=== PATIENT | male | born 1960 | race Caucasian/White ===

== ENCOUNTER 2019-09-13 03:18 | Observation (INO) | payer OTHER ==
[~2019-09-13] VITALS: Ht 175.3 cm; Wt 65.6 kg
[2019-09-13] MEDS ORDERED: Ventolin/Prove6.7 GM INH (03:36)
[2019-09-13] MEDS ORDERED: PANTOPRAZOLE SO40 M2 PO (03:36)
[2019-09-13] MEDS ORDERED: ATRIPLA PO (03:37)
[2019-09-13 03:53] LABS: BASOPHILS ABSOLUTE AUTO 0.09 K/mm3 (0.00-0.23); BASOPHILS PERCENT AUTO 1 % (0-2); EOSINOPHILS ABSOLUTE AUTO 0.07 K/mm3 (0.00-0.68); EOSINOPHILS PERCENT AUTO 1 % (0-6); Hematocrit 30.4 % (33.0-51.0); Hemoglobin 9.9 g/dL (11.5-16.0); IMMATURE GRAN ABSOLUTE AUTO 0.01 K/mm3 (0.00-0.10); IMMATURE GRAN PERCENT AUTO 0 % (0-1); LYMPHOCYTES ABSOLUTE AUTO 2.04 K/mm3 (0.84-5.20); LYMPHOCYTES PERCENT AUTO 25 % (21-46); MONOCYTES ABSOLUTE AUTO 0.86 K/mm3 (0.16-1.47); MONOCYTES PERCENT AUTO 10 % (4-13); Mean Corpuscular HGB Conc 32.6 g/dL (31.5-36.5); Mean Corpuscular Volume 98 fL (80-100); Mean Platelet Volume 9.2 fL (9.1-12.4); NEUTROPHILS ABSOLUTE AUTO 5.23 K/mm3 (1.96-9.15); NEUTROPHILS PERCENT AUTO 63 % (41-73); Platelet Count 195 K/mm3 (150-400); RDW Coefficient Variation 17.4 % (11.7-14.2); RDW Standard Deviation 62.8 fL (35.1-46.3); Red Blood Cell Count 3.09 M/mm3 (3.80-5.20)
[2019-09-13 04:13] LABS: Alanine Aminotransfer (ALT/SGP 32 U/L (12-78); Albumin, Blood 2.1 g/dL (3.4-5.0); Albumin/Globulin Ratio 0.4 (0.8-1.8); Alk Phos 253 U/L (50-136); Anion Gap 5 mmol/L (6-16); Aspartate Aminotrans (AST/SGOT 76 U/L (12-37); Bilirubin, Total 0.4 mg/dL (0.1-1.0); Blood Urea Nitrogen 2 mg/dL (8-24); CO2, Blood 25 mmol/L (21-32); Calcium, Blood 7.3 mg/dL (8.5-10.1); Chloride, Blood 112 mmol/L (98-108); Creatinine, Blood 0.67 mg/dL (0.40-1.00); Globulin, Blood 4.7 g/dL (2.2-4.0); Glomerular Filtration Rate >60 (60-); Glucose, Blood 90 mg/dL (70-99); Potassium, Blood 3.9 mmol/L (3.5-5.5); Sodium, Blood 142 mmol/L (136-145); Total Protein, Blood 6.8 g/dL (6.4-8.2)
--- NOTE | 2019-09-13 08:30 | NUR ---
INITIAL ASSESSMENT PATIENT ARRIVED TO UNIT AROUND 0810. PATIENT ALERT AND ORIENTED X 4, AFEBRILE. PATIENT IRRITABLE AND WANTS TO BE LEFT ALONE. PATIENT UPSET THAT HE HAD TO BE TRANSFERRED FROM ANOTHER HOSPITAL. PATIENT DENIES PAIN OR DISCOMFORT. CIWA OF 0. PATIENT STATES HE DRINKS DAILY. PATIENT STATES HE USUALLY HAS A FEW BEERS EVERYDAY BUT ALSO SOMETIMES HAS 1/5TH VODKA WITH THEM. PATIENT SATTING 90% AND GREATER ON RA. EXPIRATORY WHEEZES NOTED IN ALL LUNG LOBES. PATIENT SMOKES 1/2 PACK DAILY. PATIENT STATES HE HAS OCCASIONAL DRY COUGH. PATIENT IN SR, HR IN THE 90S. BP STABLE. ABDOMEN SOFT, NONTENDER, NONDISTENDED, WITH HYPOACTIVE BS. PATIENT STATES THAT HIS LAST BM WAS YESTERDAY AND WAS LOOSE AND [place] IN COLOR. PATIENT STATES THAT HE HAS RECENTLY LOST AROUND 25 LBS FROM POOR APPETITE. PATIENT STATES HE FEELS HUNGRY BUT THAT HE DOESN'T FEEL LIKE EATING ANYMORE AFTER A COUPLE OF BITES. PATIENT VOIDING DARK YELLOW URINE INTO BEDSIDE URINAL. SKIN APPEARS WNL. PATIENT ABLE TO MOVE EXTREMITIES AND REPOSITION SELF IN BED. PROTONIX INFUSING AT 10 MLS/ HOUR AND SANDOSTATIN INFUSING AT 25 MLS/ HOUR. BED LOW, CALL LIGHT IN REACH. PATIENT ORIENTED TO UNIT, ROOM AND CALL SYSTEM. WILL CONTINUE TO MONITOR PATIENT FREQUENTLY THROUGHOUT SHIFT.
[2019-09-13 10:17] LABS: Hematocrit 28.8 % (37.0-53.0); Hemoglobin 9.3 g/dL (13.5-17.5); Mean Corpuscular HGB 31.7 pg (26.0-34.0); Mean Corpuscular HGB Conc 32.3 g/dL (31.5-36.5); Mean Corpuscular Volume 98 fL (80-100); Mean Platelet Volume 9.2 fL (9.1-12.4); Platelet Count 186 K/mm3 (150-400); RDW Coefficient Variation 17.2 % (11.7-14.2); RDW Standard Deviation 62.4 fL (35.1-46.3); Red Blood Cell Count 2.93 M/mm3 (4.30-5.90); White Blood Cell Count 6.41 K/mm3 (4.00-11.30)
[2019-09-13 10:34] LABS: Alanine Aminotransfer (ALT/SGP 25 U/L (12-78); Albumin, Blood 2.4 g/dL (3.4-5.0); Albumin/Globulin Ratio 0.6 (0.8-1.8); Alk Phos 232 U/L (50-136); Anion Gap 5 mmol/L (6-16); Aspartate Aminotrans (AST/SGOT 58 U/L (12-37); Bilirubin, Total 0.5 mg/dL (0.1-1.0); Blood Urea Nitrogen 3 mg/dL (8-24); CO2, Blood 24 mmol/L (21-32); Calcium, Blood 7.1 mg/dL (8.5-10.1); Chloride, Blood 112 mmol/L (98-108); Glomerular Filtration Rate >60 (60-); Glucose, Blood 109 mg/dL (70-99); Potassium, Blood 4.2 mmol/L (3.5-5.5); Sodium, Blood 141 mmol/L (136-145); Total Protein, Blood 6.4 g/dL (6.4-8.2)
--- NOTE | 2019-09-13 12:25 | NUR ---
PATIENT RESTING QUIETLY IN BED UPON ENTERING ROOM. PATIENT DENIES PAIN OR DISCOMFORT. PATIENT AFEBRILE. CIWA SCORE OF ZERO. PATIENT REMAINS SATTING 90% AND GREATER ON RA. PATIENT IN SR, HR 80S TO 90S. BP STABLE. PATIENT STATED THAT HE HAD 200 CC CLEAR EMESIS AROUND 15 MINUTES AGO BUT THAT HE NO LONGER FEELS NAUSEOUS. PATIENT STATES THAT HE HAS PROBLEMS WITH NAUSEA AND VOMITING AT HOME LIKE THIS WELL. NO OTHER ACUTE CHANGES TO NOTE ON AT THIS TIME. WILL CONTINUE TO MONITOR.
--- NOTE | 2019-09-13 16:26 | NUR ---
PATIENT RESTING QUIETLY IN BED UPON ENTERING ROOM. PATIENT SBA TO BSC. CIWA OF ZERO. PATIENT HAS TEMP OF 99.3 DEGREES FAHRENHEIT. PATIENT REMAINS SATTING 90% AND GREATER ON RA. PATIENT REMAINS IN SR, HR IN THE 90S. BP STABLE. PATIENT HAS HAD TWO FORMED, DARK BROWN BMS TODAY. PATIENT REFUSES BED BATH. PATIENT DENIES PAIN. NO OTHER ACUTE CHANGES TO NOTE ON AT THIS TIME. WILL CONTINUE TO MONITOR.
[2019-09-13 17:04] LABS: Hematocrit 28.2 % (37.0-53.0); Hemoglobin 9.1 g/dL (13.5-17.5)
--- NOTE | 2019-09-13 18:07 | NUR ---
SHIFT SUMMARY PATIENT REMAINED ALERT AND ORIENTED. PATIENT LESS GRUMPY SECOND HALF OF SHIFT. PATIENT HAD TMAX OF 99.3 DEGREES FAHRENHEIT. CIWAS OF ZERO. PATIENT HAD NO COMPLAINTS OF PAIN DURING SHIFT. PATIENT REMAINED SATTING 90% AND GREATER ON RA. PATIENT REMAINED IN SR, HR 80S TO 90S. BP STABLE. PATIENT WORE SCDS FOR SHORT TIME AND THEN REFUSED. PATIENT HAD 1 CLEAR EMESIS THIS SHIFT AND 2 FORMED, DARK BROWN BMS. PATIENT TOLERATED CLEAR LIQUID DIET WELL. PATIENT VOIDED ADEQUATE AMOUNT OF DARK YELLOW URINE. NO CHANGE TO SKIN. PATIENT REPOSITIONED SELF T/O SHIFT. PROTONIX INFUSING AT 10 MLS/ HOUR AND SANDOSTATIN AT 25 MLS/ HOUR. PATIENT REFUSED BED BATH THIS SHIFT. DR. SMITH SUPPOSED TO SEE PATIENT TONIGHT. BED LOW, CALL LIGHT IN REACH. REPORT HAS BEEN GIVEN TO ASSUMING NURSE, MARGARITA MALDONADO.
--- NOTE | 2019-09-13 19:00 | NUR ---
ASSUMED CARE AT 1900, PT TALKING TO GI DOCTOR, DENIES PAIN, VITAL WNL, REQUESTED FOR CLEAR LIQUD SNACKS. PORTONIX AND SANDOSTATIN INFUSING. WATER ONLY IN THE AM. PROCEDURE SCHEDULE FOR THE AFTERNOON ON THE .
[2019-09-13 22:27] LABS: Hematocrit 27.4 % (37.0-53.0); Hemoglobin 8.8 g/dL (13.5-17.5)
[2019-09-14 04:54] LABS: Hematocrit 29.1 % (37.0-53.0); Hemoglobin 9.5 g/dL (13.5-17.5)
--- NOTE | 2019-09-14 06:47 | NUR ---
PT A&OX4, FOLLOWS COMMANDS, DENIES PAIN, VITALS WNL, ON CLEAR LIQUID AND WILL SWITCHTO WATER ONLY AT 0800. PER DR. SMITH PT WILL HAVE PROCEDURE IN THE AFTERNOON. NO ACUTE EVENTS OVERNIGHT WILL CONTINUE TO MONITOR
--- NOTE | 2019-09-14 08:00 | NUR ---
INITIAL ASSESSMENT PATIENT SLEEPING SOUNDLY UPON ENTERING ROOM. PATIENT WOKE EASILY TO VERBAL STIMULI. PATIENT ALERT AND ORIENTED C 4, AFEBRILE. CIWA OF ZERO. PATIENT SBA. PATIENT DENIES PAIN OR DISCOMFORT AT THIS TIME. PATIENT SATTING 90% AND GREATER ON RA. LUNGS CLEAR THROUGHOUT. PATIENT HAS OCCASIONAL, DRY COUGH. PATIENT IN SR, HR IN THE 80S. BP STABLE. PULSES STRONG. PATIENT REFUSING SCDS. ABDOMEN NONDISTENDED, SOFT, NONTENDER, WITH HYPOACTIVE BS NOTED. PATIENT HAD 3 BMS ON BEAUTY OPERATOR APPRENTICE THAT WERE LOOSE AND LIGHT BROWN IN COLOR PER BEAUTY OPERATOR APPRENTICE RN. PATIENT NOW ON WATER ONLY DIET, WILL BE NPO AT 1200 AND SCOPE PLANNED FOR 1400 PER BEAUTY OPERATOR APPRENTICE RN. PATIENT VOIDING DARK YELLOW URINE INTO BEDSIDE URINAL. SKIN WNL; PATIENT REPOSITIONING SELF IN BED. BED LOW, CALL LIGHT IN REACH. WILL CONTINUE TO MONITOR PATIENT FREQUENTLY THROUGHOUT SHIFT.
--- NOTE | 2019-09-14 12:45 | NUR ---
PATIENT RESTING QUIETLY UPON ENTERING ROOM. PATIENT DENIES PAIN OR DISCOMFORT. PATIENT AFEBRILE. CIWA SCORE OF ZERO. VSS. NO ACUTE CHANGES TO DOCUMENT ON. PATIENT NPO AT THIS TIME FOR EGD AT 1400. WILL CONTINUE TO MONITOR.
--- NOTE | 2019-09-14 13:04 | NUR ---
PATIENT TAKEN TO DAY SURGERY FOR EGD.
--- NOTE | 2019-09-14 13:14 | NUR ---
History, Chart, Medications and Allergies reviewed before start of procedure. Lungs clear T/O to Auscultation. Patient confirms NPO status and agrees with scheduled surgery. I have reviewed and agree with this Patient Note.
--- NOTE | 2019-09-14 14:18 | NUR ---
09/14/19 1418 PATSY LOZOYA History, Chart, Medications and Allergies reviewed before start of procedure.3-LEAD EKG REVIEWED WITH PHYSICIAN PRIOR TO START OF PROCEDURE.O2 VIA N/C INTACT THROUGHOUT SEDATION/PROCEDURE. PATIENT DETERMINED TO BE ASA APPROPRIATE FOR PROPOFOL SEDATION PRIOR TO START OF PROCEDURE BY DR. SMITH. MONITOR INTACT WITH CONTINUOUS PULSE OXIMETRY AND INTERMITTENT BP.
--- NOTE | 2019-09-14 16:22 | NUR ---
SHIFT SUMMARY PATIENT HAS REMAINED ALERT AND ORIENTED X 4, AFEBRILE. PATIENT HAD NO COMPLAINTS OF PAIN OR DISCOMFORT T/O SHIFT. CIWAS REMAINED ZERO. PATIENT WALKING AROUND INDEPENDENTLY IN ROOM BY END OF SHIFT. PATIENT REMAINED SATTING 90% AND GREATER ON RA. LUNGS REMAINED CLEAR THROUGHOUT. PATIENT CONTINUED TO HAVE OCCASIONAL COUGH. PATIENT REMAINED IN SR, HR 60S TO 80S. BP STABLE. PATIENT REFUSED SCDS. PATIENT HAD ONE MEDIUM, LOOSE, BROWN BM THIS SHIFT. PATIENT HAD NO COMPLAINTS OF NAUSEA. PATIENT VOIDED ADEQUATE AMOUNT OF DARK YELLOW URINE. SKIN WNL. PATIENT REPOSITIONED SELF IN BED. PATIENT HAD PUSH ENTEROSCOPY WITH DR. SMITH. A FEW BIOPSIES WERE TAKEN PER DAY SURG NURSE. IV SANDOSTATIN AND PROTONIX DRIPS WERE DC'D. PATIENT DEEMED APPROPRIATE TO BE DISCHARGED HOME BY BOTH DR. SMITH AND DR. BUSBY. IVS REMOVED. VITALS TAKEN. PATIENT GIVEN BACK HOME MEDICATIONS. DC INFO GIVEN AND SIGNED BY PATIENT STATING HE UNDERSTOOD INSTRUCTIONS. PATIENT INFORMED THAT PANTAPROZALE RX CALLED INTO [facility]. PATIENT STATED HE HAD NO FURTHER QUESTIONS. PATIENT ESCORTED OUTSIDE TO WHERE [facility] WAS SENDING TAXI. TAXI TO ARRIVE BETWEEN 1800 AND 1830. PATIENT INFORMED. PATIENT STATED HE WAS GOING TO SMOKE.
== END 2019-09-14 16:48 | disposition home or self-care (01) ==
LOC: EDSEX 03:18 → ER 03:18 → ICUW 03:19 → ERHOLD 03:19 → ICUW 08:19
PROVIDERS: Emergency Medicine; Internal Medicine Gastroenterology; ADMIT Internal Medicine
PROC: 0DB98ZX Excision of Duodenum, Via Natural or Artificial Opening Endoscopic, Diagnostic (ICD-10-PCS; principal; 2019-09-14 14:00)
PROC: 0DB38ZZ Excision of Lower Esophagus, Via Natural or Artificial Opening Endoscopic (ICD-10-PCS; principal; 2019-09-14 14:00)
PROC: 0DB78ZX Excision of Stomach, Pylorus, Via Natural or Artificial Opening Endoscopic, Diagnostic (ICD-10-PCS; principal; 2019-09-14 14:00)
PROC: 0DBA8ZX Excision of Jejunum, Via Natural or Artificial Opening Endoscopic, Diagnostic (ICD-10-PCS; principal; 2019-09-14 14:00)
DX: K92.0 Hematemesis (principal); K92.1 Melena; K70.30 Alcoholic cirrhosis of liver without ascites; K76.6 Portal hypertension; F10.288 Alcohol dependence with other alcohol-induced disorder; K44.9 Diaphragmatic hernia without obstruction or gangrene; K52.9 Noninfective gastroenteritis and colitis, unspecified; K31.89 Other diseases of stomach and duodenum; B19.20 Unspecified viral hepatitis C without hepatic coma; K21.9 Gastro-esophageal reflux disease without esophagitis; G62.9 Polyneuropathy, unspecified; F17.210 Nicotine dependence, cigarettes, uncomplicated; J44.9 Chronic obstructive pulmonary disease, unspecified; K63.5 Polyp of colon; D64.9 Anemia, unspecified; Z21 Asymptomatic human immunodeficiency virus [HIV] infection status; Z79.51 Long term (current) use of inhaled steroids; Z79.899 Other long term (current) drug therapy
CPT/HCPCS: 36415; 80053; 83690; 85014; 85018; 85025; 85027; 88305; 88342; 96365; 96366; 96367; 96368; 96376; 99285-25; C9113; G0378; J0696; J2250; J2354; J2704; J7050; J7120; P9046